=== PATIENT | female | born 1970 | race Caucasian/White ===

== ENCOUNTER 2017-03-27 04:50 | Emergency (ER) | payer OTHER ==
--- NOTE | 2017-03-27 05:36 | ED NURSING NOTES ---
Clinical Report - Nurses [facility] [address] [address] [address] 03/27/2017 4:50 Patient: RADHA MUNOZ TRIAGE Triage time 04:55. Acuity: LEVEL 4. Chief Complaint: PAINFUL URINATION, URGENCY and FREQUENCY. 05:00. Alert. --05:00 Toro Holland R.N. 04:54 03/27/17. BP: 118/81. HR: 129. RR: 16. O2 saturation: 99%. Temp: 98.1 F. Pain level now: 08/20. --05:00 Toro Holland R.N. Weight: 74.8 kg stated. Height/Length: 64 inches Per Patient. BMI: 28.3. --04:59 Toro Holland R.N. Medications None. --04:58 Toro Holland R.N. Medication/allergy information source: the patient. --05:00 Toro Holland R.N. Allergies No Known Drug Allergy. --04:58 Toro Holland R.N. History Arrived by private vehicle. Historian: patient. Accompanied by friend. Primary physician (Kike). Onset. (3 days ago). 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 PAST MEDICAL HX: Immunizations: up-to-date. The patient is post-menopausal. SOCIAL HX: Current every day light tobacco smoker- less than 1/2 a pack per day. History of occasional drug use: methamphetamines. No alcohol use. No infectious disease exposure. ABUSE ASSESSMENT: No report of abuse. FALL RISK ASSESSMENT: Fall risk assessment completed. No fall risk identified. NUTRITIONAL RISK ASSESSMENT: The nutritional risk assessment revealed no deficiencies. FUNCTIONAL ASSESSMENT: Functional assessment: no impairments noted. LEARNING NEEDS ASSESSMENT: The learning needs assessment revealed no barriers. SKIN INTEGRITY ASSESSMENT: Skin integrity risk assessment completed. No skin integrity risk identified. --05:00 Toro Holland R.N. PROBLEMS: Dental Pain. Lymphadenitis. --04:58 Toro Holland R.N. ADDITIONAL SURGERIES: no known surgeries. Interventions ID band on patient. To treatment room. --05:00 Toro Holland R.N. PHYSICAL ASSESSMENT 04:55. Ambulatory to room. GENERAL / NEURO / PSYCH: Alert. Oriented X 4. HEENT: Mucous membranes are pink. RESPIRATORY: Respirations not labored. SKIN: Skin is warm and dry. --04:55 Toro Holland R.N. NURSING PROGRESS NOTES 04:55. Patient ID band checked for patient name and birthdate: patient confirmed. Clean catch urine collected with return of orange-colored clear urine; sample sent to lab for urinalysis. Specimen labeled in the presence of the patient. --04:57 Toro Holland R.N. 05:00. The patient is calm and resting quietly. SKIN: Skin is warm and dry. --05:00 Toro Holland R.N. 05:39 03/27/2017 Levaquin (Levofloxacin) PO 750 mg given. Allergies verified and confirmed 5 rights. --05:44 Toro Holland R.N. DISPOSITION / DISCHARGE Condition at departure: stable. No learning barriers present. Discharge instructions provided and reviewed with the patient. Reviewed medication(s) side effects, precautions, dosing and course information. Prescription(s) given to the patient. Patient verbalized understanding. Written instructions provided in Romansh. The patient was discharged home and accompanied by mud mixer helper. She left the Emergency Department ambulatory and via private vehicle. Supervisor Costuming driving. FALL RISK ASSESSMENT: Fall risk assessment completed. No fall risk identified. --05:43 Toro Holland R.N. 05:41 03/27/17. HR: 98. RR: 16. O2 saturation: 100%. Pain level now: 06/20. --05:43 Toro Holland R.N. Departure time: 05:43. --05:43 Toro Holland R.N. Locked/Released at 03/27/2017 5:47 by Toro Holland R.N.
--- NOTE | 2017-03-27 05:36 | ED ORDER SUMMARY ---
..... Patient: RADHA MUNOZ OrderSheet [facility] VisitID: [id number] [address] [place] [address] 47y, F Registration Date/Time: 03/27/2017 ORDER SHEET Weight: 74.8 kg (stated) Allergies: No Known Drug Allergy GENERAL ORDERS: UA-Culture if indicated Urgent (05:01 03/27/2017 JQuivey R.N. per protocol) (Ack 5:16 Berry) (5:33 JQuivey R.N.) MEDICATION ORDERS: Levaquin PO 750 mg (NOW) (05:35 03/27/2017 Lorena RODRIGUES) (Ack 5:36 JQuivey R.N.) (5:44 JQuivey R.N.) IV FLUIDS: ORDER SHEET NOTES: [Electronically signed by Toro Holland R.N. (05:47 03/27/2017)] [Electronically signed by Maldonado Pedersen MD (21:58 03/28/2017)] [Electronically locked/signed by Toro Holland R.N. (05:47 03/27/2017)]
--- NOTE | 2017-03-27 05:36 | ED CLINICAL REPORT ---
Clinical Report - Physicians/Mid Levels [facility] [address] [place] [address] 03/27/2017 4:50 Patient: RADHA MUNOZ Time Seen: 05:27 Mar 27 2017. Arrived- By private vehicle. Historian- patient. CPT: ER phys charges level 4 (#[id number]). HISTORY OF PRESENT ILLNESS Chief Complaint: DYSURIA. 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 The symptoms are described as moderate. Modifying factors- worsened by urination. Not relieved by anything. The patient has had moderate, constant right-sided flank pain. No vaginal discharge. She has had pain with urination and urgency of urination. The patient has had urinary frequency. Similar symptoms previously: As bad. Diagnosis: UTI. Recent medical care: Not recently seen/assessed. REVIEW OF SYSTEMS No nausea, cough, skin rash, fever or sore throat. No abdominal pain, black stools, bloody stools, constipation or diarrhea. No nausea, vomiting, weakness or diabetic symptoms. She has had chills and a cough. All systems otherwise negative, except as recorded above. PAST HISTORY ( Dental Pain. Lymphadenitis.). Additional Surgeries: no known surgeries. Medications: None. Allergies: No Known Drug Allergy. SOCIAL HISTORY Heavy tobacco smoker (cigarette)- less than 1 pack per day. History of drug use: methamphetamines. No alcohol use. ADDITIONAL NOTES The nursing notes have been reviewed. PHYSICAL EXAM Vital Signs: 03/27/2017 04:54 BP: 118/81. HR: 129. RR: 16. O2 saturation: 99%. Temp: 98.1 F. Pain level now: 10/10. Appearance: Alert. Patient in mild distress. ENT: Pharynx normal. Abdomen: Soft. Mild tenderness in the lower abdomen. Bowel sounds normal. Back: Mild CVA tenderness on the right. Skin: Normal skin color. No rash. Extremities: Extremities nontender. Neuro: Oriented X 3. LABS, X-RAYS, AND EKG Laboratory Tests: UA-Culture if indicated: (FRANCES: 03/27/2017 04:57) ( MsgRcvd 03/27/2017 05:15) Final results Test Result Flag Units (Reference) URINE COLOR RED URINE APPEARANCE CLOUDY URINE GLUCOSE 1+ (NEGATIVE) URINE BILIRUBIN 2+ (NEGATIVE) URINE KETONE TRACE (NEGATIVE) URINE SPECIFIC GRAVITY 1.015 (1.010-1.030) URINE PH 5.0 (5.0-8.0) URINE PROTEIN 3+ (NEGATIVE) URINE UROBILINOGEN >=8.0 EU/dL (0.2-1.0) URINE NITRITE POSITIVE (NEGATIVE) URINE BLOOD 3+ (NEGATIVE) URINE LEUK ESTERASE POSITIVE (NEGATIVE) URINE RBC 5-10 rbc/hpf (0-1) URINE WBC 50-75 wbc/hpf (0-1) URINE EPITHELIAL CELLS 3-5 EPI/hpf (0-5) URINE BACTERIA MANY (4+) (NONE SEEN) URINE COMMENT CULTURE INDICATED URINE CULTURES ARE SET-UP BASED ON THE FOLLOWING CRITERIA:POSITIVE NITRITEPOSITIVE LEUKOCYTE ESTERASEGREATER THAN 10 WHITE BLOOD CELLSMODERATE (2+) OR GREATER BACTERIA . PROGRESS AND PROCEDURES Course of Care: Levaquin 750 mg po. Patient/family counseled. Disposition: Discharged. Condition: stable. CLINICAL IMPRESSION Acute urinary tract infection with cystitis and pyelonephritis (right sided.). INSTRUCTIONS Drink plenty of fluids. No sexual contact. Warnings: Further evaluation is necessary. GENERAL WARNINGS: Return or contact your physician immediately if your condition worsens or changes unexpectedly, if not improving as expected, or if other problems arise. Prescription Medications: Pyridium 200 mg: take 1 orally every 8 hours as needed for urinary problems. Dispense six (6). No refills. Substitution is permissible. Cipro 500 mg: take 1 tab orally every 12 hours for 10 days. Dispense twenty (20). No refills. Substitution is permissible. Follow-up: Follow up with your doctor in three days if not better. Understanding of the discharge instructions verbalized by patient. (Electronically signed by Maldonado Pedersen MD 03/28/2017 21:58)
--- NOTE | 2017-03-27 05:36 | ED CLINICAL REPORT ---
Clinical Report - Physicians/Mid Levels [facility] [address] [place] [address] 03/27/2017 4:50 Patient: RADHA MUNOZ Time Seen: 05:27 Mar 27 2017. Arrived- By private vehicle. Historian- patient. CPT: ER phys charges level 4 (#[id number]). HISTORY OF PRESENT ILLNESS Chief Complaint: DYSURIA. 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 The symptoms are described as moderate. Modifying factors- worsened by urination. Not relieved by anything. The patient has had moderate, constant right-sided flank pain. No vaginal discharge. She has had pain with urination and urgency of urination. The patient has had urinary frequency. Similar symptoms previously: As bad. Diagnosis: UTI. Recent medical care: Not recently seen/assessed. REVIEW OF SYSTEMS No nausea, cough, skin rash, fever or sore throat. No abdominal pain, black stools, bloody stools, constipation or diarrhea. No nausea, vomiting, weakness or diabetic symptoms. She has had chills and a cough. All systems otherwise negative, except as recorded above. PAST HISTORY ( Dental Pain. Lymphadenitis.). Additional Surgeries: no known surgeries. Medications: None. Allergies: No Known Drug Allergy. SOCIAL HISTORY Heavy tobacco smoker (cigarette)- less than 1 pack per day. History of drug use: methamphetamines. No alcohol use. ADDITIONAL NOTES The nursing notes have been reviewed. PHYSICAL EXAM Vital Signs: 03/27/2017 04:54 BP: 118/81. HR: 129. RR: 16. O2 saturation: 99%. Temp: 98.1 F. Pain level now: 10/10. Appearance: Alert. Patient in mild distress. ENT: Pharynx normal. Abdomen: Soft. Mild tenderness in the lower abdomen. Bowel sounds normal. Back: Mild CVA tenderness on the right. Skin: Normal skin color. No rash. Extremities: Extremities nontender. Neuro: Oriented X 3. LABS, X-RAYS, AND EKG Laboratory Tests: UA-Culture if indicated: (FRANCES: 03/27/2017 04:57) ( MsgRcvd 03/27/2017 05:15) Final results Test Result Flag Units (Reference) URINE COLOR RED URINE APPEARANCE CLOUDY URINE GLUCOSE 1+ (NEGATIVE) URINE BILIRUBIN 2+ (NEGATIVE) URINE KETONE TRACE (NEGATIVE) URINE SPECIFIC GRAVITY 1.015 (1.010-1.030) URINE PH 5.0 (5.0-8.0) URINE PROTEIN 3+ (NEGATIVE) URINE UROBILINOGEN >=8.0 EU/dL (0.2-1.0) URINE NITRITE POSITIVE (NEGATIVE) URINE BLOOD 3+ (NEGATIVE) URINE LEUK ESTERASE POSITIVE (NEGATIVE) URINE RBC 5-10 rbc/hpf (0-1) URINE WBC 50-75 wbc/hpf (0-1) URINE EPITHELIAL CELLS 3-5 EPI/hpf (0-5) URINE BACTERIA MANY (4+) (NONE SEEN) URINE COMMENT CULTURE INDICATED URINE CULTURES ARE SET-UP BASED ON THE FOLLOWING CRITERIA:POSITIVE NITRITEPOSITIVE LEUKOCYTE ESTERASEGREATER THAN 10 WHITE BLOOD CELLSMODERATE (2+) OR GREATER BACTERIA . PROGRESS AND PROCEDURES Course of Care: Levaquin 750 mg po. Patient/family counseled. Disposition: Discharged. Condition: stable. CLINICAL IMPRESSION Acute urinary tract infection with cystitis and pyelonephritis (right sided.). INSTRUCTIONS Drink plenty of fluids. No sexual contact. Warnings: Further evaluation is necessary. GENERAL WARNINGS: Return or contact your physician immediately if your condition worsens or changes unexpectedly, if not improving as expected, or if other problems arise. Prescription Medications: Pyridium 200 mg: take 1 orally every 8 hours as needed for urinary problems. Dispense six (6). No refills. Substitution is permissible. Cipro 500 mg: take 1 tab orally every 12 hours for 10 days. Dispense twenty (20). No refills. Substitution is permissible. Follow-up: Follow up with your doctor in three days if not better. Understanding of the discharge instructions verbalized by patient. (Electronically signed by Maldonado Pedersen MD 03/28/2017 21:58)
--- NOTE | 2017-03-27 05:36 | ED ORDER SUMMARY ---
..... Patient: RADHA MUNOZ OrderSheet [facility] VisitID: [id number] [address] [place] [address] 47y, F Registration Date/Time: 03/27/2017 ORDER SHEET Weight: 74.8 kg (stated) Allergies: No Known Drug Allergy GENERAL ORDERS: UA-Culture if indicated Urgent (05:01 03/27/2017 JQuivey R.N. per protocol) (Ack 5:16 Berry) (5:33 JQuivey R.N.) MEDICATION ORDERS: Levaquin PO 750 mg (NOW) (05:35 03/27/2017 Lorena RODRIGUES) (Ack 5:36 JQuivey R.N.) (5:44 JQuivey R.N.) IV FLUIDS: ORDER SHEET NOTES: [Electronically signed by Toro Holland R.N. (05:47 03/27/2017)] [Electronically signed by Maldonado Pedersen MD (21:58 03/28/2017)] [Electronically locked/signed by Toro Holland R.N. (05:47 03/27/2017)]
--- NOTE | 2017-03-27 05:36 | ED NURSING NOTES ---
Clinical Report - Nurses [facility] [address] [place] [address] 03/27/2017 4:50 Patient: RADHA MUNOZ TRIAGE Triage time 04:55. Acuity: LEVEL 4. Chief Complaint: PAINFUL URINATION, URGENCY and FREQUENCY. 05:00. Alert. --05:00 Toro Holland R.N. 04:54 03/27/17. BP: 118/81. HR: 129. RR: 16. O2 saturation: 99%. Temp: 98.1 F. Pain level now: 08/20. --05:00 Toro Holland R.N. Weight: 74.8 kg stated. Height/Length: 64 inches Per Patient. BMI: 28.3. --04:59 Toro Holland R.N. Medications None. --04:58 Toro Holland R.N. Medication/allergy information source: the patient. --05:00 Toro Holland R.N. Allergies No Known Drug Allergy. --04:58 Toro Holland R.N. History Arrived by private vehicle. Historian: patient. Accompanied by friend. Primary physician (Kike). Onset. (3 days ago). 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 PAST MEDICAL HX: Immunizations: up-to-date. The patient is post-menopausal. SOCIAL HX: Current every day light tobacco smoker- less than 1/2 a pack per day. History of occasional drug use: methamphetamines. No alcohol use. No infectious disease exposure. ABUSE ASSESSMENT: No report of abuse. FALL RISK ASSESSMENT: Fall risk assessment completed. No fall risk identified. NUTRITIONAL RISK ASSESSMENT: The nutritional risk assessment revealed no deficiencies. FUNCTIONAL ASSESSMENT: Functional assessment: no impairments noted. LEARNING NEEDS ASSESSMENT: The learning needs assessment revealed no barriers. SKIN INTEGRITY ASSESSMENT: Skin integrity risk assessment completed. No skin integrity risk identified. --05:00 Toro Holland R.N. PROBLEMS: Dental Pain. Lymphadenitis. --04:58 Toro Holland R.N. ADDITIONAL SURGERIES: no known surgeries. Interventions ID band on patient. To treatment room. --05:00 Toro Holland R.N. PHYSICAL ASSESSMENT 04:55. Ambulatory to room. GENERAL / NEURO / PSYCH: Alert. Oriented X 4. HEENT: Mucous membranes are pink. RESPIRATORY: Respirations not labored. SKIN: Skin is warm and dry. --04:55 Toro Holland R.N. NURSING PROGRESS NOTES 04:55. Patient ID band checked for patient name and birthdate: patient confirmed. Clean catch urine collected with return of orange-colored clear urine; sample sent to lab for urinalysis. Specimen labeled in the presence of the patient. --04:57 Toro Holland R.N. 05:00. The patient is calm and resting quietly. SKIN: Skin is warm and dry. --05:00 Toro Holland R.N. 05:39 03/27/2017 Levaquin (Levofloxacin) PO 750 mg given. Allergies verified and confirmed 5 rights. --05:44 Toro Holland R.N. DISPOSITION / DISCHARGE Condition at departure: stable. No learning barriers present. Discharge instructions provided and reviewed with the patient. Reviewed medication(s) side effects, precautions, dosing and course information. Prescription(s) given to the patient. Patient verbalized understanding. Written instructions provided in Telugu. The patient was discharged home and accompanied by nonprofit manager. She left the Emergency Department ambulatory and via private vehicle. Telegraph Mechanic driving. FALL RISK ASSESSMENT: Fall risk assessment completed. No fall risk identified. --05:43 Toro Holland R.N. 05:41 03/27/17. HR: 98. RR: 16. O2 saturation: 100%. Pain level now: 06/20. --05:43 Toro Holland R.N. Departure time: 05:43. --05:43 Toro Holland R.N. Locked/Released at 03/27/2017 5:47 by Toro Holland R.N.
--- NOTE | 2017-03-28 21:58 | ED MED RECONCILIATION SUMMARY ---
Patient: RADHA MUNOZ Medication Reconciliation Report [facility] VisitID: [id number] [address] [place] [address] 47y, F Registration Date/Time: 03/27/2017 Weight: 74.8 kg Height/Length: 64 in. BMI: 28.3 ALLERGIES: No Known Drug Allergy The patient's Home Medications are listed below: NONE. The source(s) of the original Home Medication information: patient The following Medications were given to the patient in the Emergency Department: Levaquin [PO] PO 750 mg, administered: 03/27/2017 5:39:00 AM The following Medications were prescribed to the patient: Pyridium 200 mg: take 1 orally every 8 hours as needed for urinary problems. Dispense six (6). No refills. Substitution is permissible. -- Maldonado Pedersen MD Cipro 500 mg: take 1 tab orally every 12 hours for 10 days. Dispense twenty (20). No refills. Substitution is permissible. -- Maldonado Pedersen MD
--- NOTE | 2017-03-28 21:58 | ED MED RECONCILIATION SUMMARY ---
Patient: RADHA MUNOZ Medication Reconciliation Report [facility] VisitID: [id number] [address] [place] [address] 47y, F Registration Date/Time: 03/27/2017 Weight: 74.8 kg Height/Length: 64 in. BMI: 28.3 ALLERGIES: No Known Drug Allergy The patient's Home Medications are listed below: NONE. The source(s) of the original Home Medication information: patient The following Medications were given to the patient in the Emergency Department: Levaquin [PO] PO 750 mg, administered: 03/27/2017 5:39:00 AM The following Medications were prescribed to the patient: Pyridium 200 mg: take 1 orally every 8 hours as needed for urinary problems. Dispense six (6). No refills. Substitution is permissible. -- Maldonado Pedersen MD Cipro 500 mg: take 1 tab orally every 12 hours for 10 days. Dispense twenty (20). No refills. Substitution is permissible. -- Maldonado Pedersen MD
--- NOTE | 2017-03-28 21:58 | ED DISCHARGE INSTRUCTIONS ---
Patient: RADHA MUNOZ General Instructions [facility] VisitID: [id number] [place] [address] 47y, F Registration Date/Time: 03/27/2017 Acute urinary tract infection with cystitis and pyelonephritis (right sided.). INSTRUCTIONS Drink plenty of fluids. No sexual contact. Warnings: Further evaluation is necessary. GENERAL WARNINGS: Return or contact your physician immediately if your condition worsens or changes unexpectedly, if not improving as expected, or if other problems arise. Prescription Medications: Pyridium 200 mg: take 1 orally every 8 hours as needed for urinary problems. Dispense six (6). No refills. Substitution is permissible. Cipro 500 mg: take 1 tab orally every 12 hours for 10 days. Dispense twenty (20). No refills. Substitution is permissible. Follow-up: Follow up with your doctor in three days if not better. Understanding of the discharge instructions verbalized by patient. ADDITIONAL INFORMATION Bladder Infection,Female (Adult) A bladder infection ("cystitis" or "UTI") usually causes a constant urge to urinate and a burning when passing urine. Urine may be cloudy, smelly or dark. There may be pain in the lower abdomen. A bladder infection occurs when bacteria from the vaginal area enter the bladder opening (urethra). This can occur from sexual intercourse, wearing tight clothing, dehydration and other factors. Home Care: Drink lots of fluids (at least 6-8 glasses a day, unless you must restrict fluids for other medical reasons). This will force the medicine into your urinary system and flush the bacteria out of your body. Avoid sexual intercourse until your symptoms are gone. Avoid caffeine, alcohol and spicy foods. These can irritate the bladder. A bladder infection is treated with antibiotics. You may also be given Pyridium (generic = phenazopyridine) to reduce the burning sensation. This medicine will cause your urine to become a bright orange color. The orange urine may stain clothing. You may wear a pad or panty-liner to protect clothing. Preventing Future Infections: Always wipe from front to back after a bowel movement. Keep the genital area clean and dry. Drink plenty of fluids each day to avoid dehydration. Both sexual partners should wash before intercourse. Urinate right after intercourse to flush out the bladder. Wear cotton underwear and cotton-lined panty hose; avoid tight-fitting pants. If you are on control pills and are having frequent bladder infections, discuss with your doctor. Follow Up: Return to this facility or see your doctor if ALL symptoms are not gone after three days of treatment. Get Prompt Medical Attention if any of the following occur: Fever of 100.4F (38C) or higher, or as directed by your healthcare provider No improvement by the third day of treatment Increasing back or abdominal pain Repeated vomiting; unable to keep medicine down Weakness, dizziness or fainting Vaginal discharge Pain, redness or swelling in the labia (outer vaginal area) You have been given the following additional information: Bladder Infection, Female (Adult) (Electronically signed by Maldonado Pedersen MD 03/28/2017 21:58)
--- NOTE | 2017-03-28 21:58 | ED MAR SUMMARY ---
..... Medication Administration Record [facility] [address] [place] [address] Patient: RADHA MUNOZ Visit ID: [id number] 47y, F Weight: 74.8 kg Height/Length: 64 in BMI: 28.3 ALLERGIES: No Known Drug Allergy Given 05:39 03/27/2017 Toro Holland RAlexanderNAlexander Medication Administered: LEVAQUIN [PO] (LEVOFLOXACIN), Dose: 750 mg PO. Medication Ordered: Levaquin PO 750 mg (NOW).
--- NOTE | 2017-03-28 21:58 | ED MAR SUMMARY ---
..... Medication Administration Record [facility] [address] [place] [address] Patient: RADHA MUNOZ Visit ID: [id number] 47y, F Weight: 74.8 kg Height/Length: 64 in BMI: 28.3 ALLERGIES: No Known Drug Allergy Given 05:39 03/27/2017 Toro Holland RAlexanderNAlexander Medication Administered: LEVAQUIN [PO] (LEVOFLOXACIN), Dose: 750 mg PO. Medication Ordered: Levaquin PO 750 mg (NOW).
== END 2017-03-27 05:43 | disposition home or self-care (01) ==
LOC: ED SRH 04:50
DX: N12 Tubulo-interstitial nephritis, not specified as acute or chronic (principal); N30.00 Acute cystitis without hematuria; F17.210 Nicotine dependence, cigarettes, uncomplicated
CPT/HCPCS: 90004; 90148; 90469